=== PATIENT | female | born 1945 | race Caucasian/White ===

== ENCOUNTER 2020-07-12 12:45 | Emergency (ER) | payer MEDICARE, BC ==
[2020-07-12] MEDS ORDERED: Metoclopramide 10 MG/2 ML SDV IVPUSH ONE (12:58)
[2020-07-12] MEDS ORDERED: Sodium Chloride 0.9% 10 ML Syringe FLUSH PRN (12:58)
[2020-07-12] MEDS ORDERED: Ketorolac 30 MG/ML SDV IVPUSH ONE (12:58)
[2020-07-12] MEDS ORDERED: Sodium Chloride 0.9% 1,000 ML IV ONE (12:58)
[2020-07-12] MEDS ORDERED: diphenhydrAMINE 50 MG/ML SDV IVPUSH ONE (12:58)
--- NOTE | 2020-07-12 13:17 | EDM.PDOC ---
ED HPI GENERAL MEDICAL PROBLEM - General Chief Complaint: Headache Stated Complaint: NAUSEA/HEADACHE Time Seen by Provider: 07/12/20 12:52 Source of Information: Reports: Patient, RN Notes Reviewed History Limitations: Reports: No Limitations - History of Present Illness INITIAL COMMENTS - FREE TEXT/NARRATIVE: Patient is a 74-year-old female who presents to the ED for the evaluation of her frontal headache. Patient notes for the last 5 days, she has had a frontal headache, along with associated nausea, so much so that she is not been able to eat or drink much. She has not had any actual vomiting, but just has not been eating due to the nausea. She notes that she just feels generally unwell, she has been having some hot and cold flashes, but no documented fever at home. She has been using aspirin for her headache, and this seems to make the headache better initially, but then it returns again. She was seen at the [facility] on Wednesday, states she was tested for COVID-19 and influenza and states both of these were negative. She did not receive any medications for the headache when she attended the clinic on Wednesday. She denies any known sick contacts. She does not have a history of headaches, so this is new for her. She is not having any blurred vision or double vision, her blood pressure is mildly elevated at time of triage at 173/85, otherwise vitals are stable and unremarkable. She is not complaining of any cough or shortness of breath. She is complaining of generalized myalgias, nausea, and a headache that will not go away with aspirin alone. Headache Pain Score (Numeric/FACES): 8 - Related Data Allergies Allergy/AdvReac Type Severity Reaction Status Date / Time Sulfa (Sulfonamide Allergy Rash Verified 03/08/19 08:40 Antibiotics) Home Meds: Home Meds Carbodopa Levadopa 1 tab PO TID 07/12/20 [History] Cyanocobalamin/FA/Pyridoxine [Folbic] 1 tab PO DAILY 07/12/20 [History] Levothyroxine [Synthroid] 50 mcg PO DAILY 07/12/20 [History] Simvastatin 20 mg PO DAILY 07/12/20 [History] Past Medical History HEENT History: Reports: Impaired Vision, Other (See Below) Other HEENT History: [facility] Neurological History: Reports: Parkinson's Endocrine/Metabolic History: Reports: Hypothyroidism - Past Surgical History GI Surgical History: Reports: Cholecystectomy Social & Family History - Tobacco Use Tobacco Use Status *Q: Never Tobacco User - Caffeine Use Caffeine Use: Reports: Coffee, Soda, Tea - Recreational Drug Use Recreational Drug Use: No ED ROS GENERAL - Review of Systems Review Of Systems: Comprehensive ROS is negative, except as noted in HPI. - Physical Exam Exam: See Below Exam Limited By: No Limitations General Appearance: Alert, WD/WN, No Apparent Distress Eye Exam: Bilateral Eye: EOMI, Normal Inspection, PERRL Ears: Normal External Exam Nose: Normal Inspection Throat/Mouth: Normal Inspection, Normal Lips, Normal Teeth, Normal Gums, Normal Oropharynx, Normal Voice, No Airway Compromise Head Exam: Atraumatic, Normocephalic Neck: Normal Inspection, Supple, Non-Tender, Full Range of Motion Respiratory/Chest: No Respiratory Distress, Lungs Clear, Normal Breath Sounds, No Accessory Muscle Use, Chest Non-Tender Cardiovascular: Normal Peripheral Pulses, Regular Rate, Rhythm, No Murmur GI/Abdominal: Normal Bowel Sounds, Soft, No Distention, No Mass, Tender (mild tenderness over epigastrium only) Neuro Exam (Abbreviated): Alert, Oriented, Normal Cognition, No Motor/Sensory Deficits Extremities: Normal Inspection, Normal Capillary Refill Psychiatric: Normal Affect, Normal Mood Skin Exam: Warm, Dry, Intact, Normal Color, No Rash Course - Vital Signs Last Recorded V/S: Last Vital Signs Temp 96.8 F L 07/12/20 12:53 Pulse 95 07/12/20 12:53 Resp 20 07/12/20 12:53 BP 173/85 H 07/12/20 12:53 Pulse Ox 97 07/12/20 12:53 - Orders/Labs/Meds Orders: Active Orders 24 hr Category Date Time Status Peripheral IV Care [RC] . DIRECTED Care 07/12/20 12:58 Ordered CBC WITH AUTO DIFF [HEME] Stat Lab 07/12/20 13:08 Ordered Sodium Chloride 0.9% [Saline Flush] Med 07/12/20 12:58 Active 10 ml FLUSH ASDIRECTED PRN Peripheral IV Insertion Adult [OM.PC] Routine Oth 07/12/20 12:58 Ordered Medication Orders Sodium Chloride (Saline Flush) 10 ml FLUSH ASDIRECTED PRN PRN Reason: Keep Vein Open Last Admin: 07/12/20 13:40 Dose: 10 ml Documented by: DEMIAN Labs: Laboratory Tests 07/12/20 07/12/20 Range/Units 13:17 13:17 WBC 5.38 (3.98-10.04) K/mm3 RBC 4.22 (3.98-5.22) M/mm3 Hgb 13.2 (11.2-15.7) gm/dl Hct 39.7 (34.1-44.9) % MCV 94.1 (79.4-94.8) fl MCH 31.3 (25.6-32.2) pg MCHC 33.2 (32.2-35.5) g/dl RDW Std Deviation 40.9 (36.4-46.3) fL Plt Count 253 (182-369) K/mm3 MPV 9.4 (9.4-12.3) fl Neut % (Auto) 69.4 (34.0-71.1) % Lymph % (Auto) 20.4 (19.3-51.7) % Dolores % (Auto) 9.3 (4.7-12.5) % Eos % (Auto) 0.2 L (0.7-5.8) Baso % (Auto) 0.7 (0.1-1.2) % Neut # (Auto) 3.73 (1.56-6.13) K/mm3 Lymph # (Auto) 1.10 L (1.18-3.74) K/mm3 Dolores # (Auto) 0.50 H (0.24-0.36) K/mm3 Eos # (Auto) 0.01 L (0.04-0.36) K/mm3 Baso # (Auto) 0.04 (0.01-0.08) K/mm3 Sodium 140 (136-145) mEq/L Potassium 3.5 (3.5-5.1) mEq/L Chloride 104 (98-107) mEq/L Carbon Dioxide 27 (21-32) mEq/L Anion Gap 12.5 (5-15) BUN 16 (7-18) mg/dL Creatinine 0.7 (0.55-1.02) mg/dL Est Cr Clr Drug Dosing 61.81 mL/min Estimated GFR (MDRD) > 60 (>60) mL/min BUN/Creatinine Ratio 22.9 H (14-18) Glucose 142 H (83-115) mg/dL Calcium 8.5 (8.5-10.1) mg/dL Magnesium 1.7 L (1.8-2.4) mg/dl Total Bilirubin 0.6 (0.2-1.0) mg/dL AST 19 (15-37) U/L ALT 11 L (14-59) U/L Alkaline Phosphatase 71 (46-116) U/L Total Protein 6.9 (6.4-8.2) g/dl Albumin 2.9 L (3.4-5.0) g/dl Globulin 4.0 gm/dL Albumin/Globulin Ratio 0.7 L (1-2) Meds: Medications Generic Name Dose Route Start Last Admin Trade Name Freq PRN Reason Stop Dose Admin Sodium Chloride 10 ml 07/12/20 12:58 07/12/20 13:40 Saline Flush FLUSH 10 ml ASDIRECTED PRN Administration Keep Vein Open Discontinued Medications Generic Name Dose Route Start Last Admin Trade Name Freq PRN Reason Stop Dose Admin Diphenhydramine HCl 25 mg 07/12/20 12:58 07/12/20 13:39 Benadryl IVPUSH 07/12/20 12:59 25 mg ONETIME ONE Administration Sodium Chloride 1,000 mls @ 999 mls/hr 07/12/20 12:58 07/12/20 13:39 Normal Saline IV 07/12/20 13:58 999 mls/hr ASDIRECTED ONE Administration Ketorolac Tromethamine 30 mg 07/12/20 12:58 07/12/20 13:39 Toradol IVPUSH 07/12/20 12:59 30 mg ONETIME ONE Administration Metoclopramide HCl 10 mg 07/12/20 12:58 07/12/20 13:39 Reglan IVPUSH 07/12/20 12:59 10 mg ONETIME ONE Administration - Re-Assessments/Exams Free Text/Narrative Re-Assessment/Exam: 07/12/20 13:16 Patient presents to the ED for evaluation of her ongoing sickness. Have ordered some medications for her headache, and basic labs to be obtained. She is already had a Covid test and a flu swab that was negative, these will not be repeated at this time. 07/12/20 14:33 The patient states that she is feeling much better, and that her headache has subsided substantially. Her labs are unremarkable at this time. She will be discharged home with general recommendations and have her follow-up with her primary care provider as needed for further health care management. Departure - Departure Time of Disposition: 14:33 Disposition: Home, Self-Care 01 Condition: Good Clinical Impression: Headache Qualifiers: Headache type: other headache syndrome Qualified Code(s): G44.89 - Other headache syndrome - Discharge Information *PRESCRIPTION DRUG MONITORING PROGRAM REVIEWED*: No *COPY OF PRESCRIPTION DRUG MONITORING REPORT IN PATIENT ONEL: No Instructions: General Headache Without Cause, [id number] Referrals: Amy Alicia NP [Primary Care Provider] - Forms: ED Department Discharge Additional Instructions: You were evaluated in the ED for your headache. Your laboratory evaluation was unremarkable at today's visit. You were given a combination of medications and IV fluid for management. This did seem to provide you pretty good relief of your symptoms. Recommend that you go home and rest in a quiet, darkened room. Try also to keep well hydrated. Please return to the ED if your symptoms should change or worsen. Sepsis Event Note (ED) - Evaluation Sepsis Screening Result: No Definite Risk - Focused Exam Vital Signs: Vital Signs Temp Pulse Resp BP Pulse Ox 07/12/20 12:53 96.8 F L 95 20 173/85 H 97 - My Orders Last 24 Hours: My Active Orders 07/12/20 12:58 Peripheral IV Care [RC] . DIRECTED Sodium Chloride 0.9% [Saline Flush] 10 ml FLUSH ASDIRECTED PRN Peripheral IV Insertion Adult [OM.PC] Routine 07/12/20 13:08 CBC WITH AUTO DIFF [HEME] Stat - Assessment/Plan Last 24 Hours: My Active Orders 07/12/20 12:58 Peripheral IV Care [RC] . DIRECTED Sodium Chloride 0.9% [Saline Flush] 10 ml FLUSH ASDIRECTED PRN Peripheral IV Insertion Adult [OM.PC] Routine 07/12/20 13:08 CBC WITH AUTO DIFF [HEME] Stat
== END 2020-07-12 14:45 | disposition home or self-care (01) ==
LOC: JD.ED 12:45
DX: G44.89 Other headache syndrome (principal); R10.13 Epigastric pain; E03.9 Hypothyroidism, unspecified; G20 Parkinson's disease; Z88.2 Allergy status to sulfonamides; Z90.49 Acquired absence of other specified parts of digestive tract; Z79.899 Other long term (current) drug therapy
CPT/HCPCS: 36415; 80053; 83735; 85025; 96374; 96375; 99284; J1200; J1885; J2765; J7030; 99283

== ENCOUNTER 2020-09-27 16:55 | Emergency (ER) | payer MEDICARE, BC ==
--- NOTE | 2020-09-27 19:00 | EDM.PDOC ---
ED HPI GENERAL MEDICAL PROBLEM - General Chief Complaint: Upper Extremity Injury/Pain Stated Complaint: FALL/L WRIST AND ARM INJURY Time Seen by Provider: 09/27/20 17:25 Source of Information: Reports: Patient, RN Notes Reviewed History Limitations: Reports: No Limitations - History of Present Illness INITIAL COMMENTS - FREE TEXT/NARRATIVE: Patient is a 74-year-old female presenting to the emergency department with complaints of right wrist pain. She states that she fell and reached her right arm out to catch herself. She felt something crack. She has been having pain to the area whenever she moves her wrist. Denies any numbness or tingling. Denies any previous injuries to this wrist. Treatments [employer]: Reports: Cold Therapy Right Wrist Pain Score (Numeric/FACES): 7 - Related Data Allergies Allergy/AdvReac Type Severity Reaction Status Date / Time Sulfa (Sulfonamide Allergy Rash Verified 09/27/20 17:28 Antibiotics) Home Meds: Home Meds Carbodopa Levadopa 1 tab PO TID 07/12/20 [History] Cyanocobalamin/FA/Pyridoxine [Folbic] 1 tab PO DAILY 07/12/20 [History] Levothyroxine [Synthroid] 50 mcg PO DAILY 07/12/20 [History] Simvastatin 20 mg PO DAILY 07/12/20 [History] Past Medical History HEENT History: Reports: Impaired Vision, Other (See Below) Other HEENT History: [place] Neurological History: Reports: Parkinson's Endocrine/Metabolic History: Reports: Hypothyroidism - Past Surgical History GI Surgical History: Reports: Cholecystectomy Social & Family History - Family History Family Medical History: No Pertinent Family History - Tobacco Use Tobacco Use Status *Q: Never Tobacco User Second Hand Smoke Exposure: No - Caffeine Use Caffeine Use: Reports: None - Recreational Drug Use Recreational Drug Use: No Review of Systems - Review of Systems Review Of Systems: Comprehensive ROS is negative, except as noted in HPI. ED EXAM, GENERAL - Physical Exam Exam: See Below Exam Limited By: No Limitations General Appearance: Alert, WD/WN, No Apparent Distress Respiratory/Chest: No Respiratory Distress, Lungs Clear, Normal Breath Sounds, No Accessory Muscle Use, Chest Non-Tender Cardiovascular: Normal Peripheral Pulses, Regular Rate, Rhythm, No Edema, No Gallop, No JVD, No Murmur, No Rub Extremities: Other (Tenderness to palpation over the right distal radius. No obvious deformity. CMS intact distal to the injury.) Neurological: Alert, Oriented, CN II-XII Intact, Normal Cognition, Normal Gait, Normal Reflexes, No Motor/Sensory Deficits Psychiatric: Normal Affect, Normal Mood Skin Exam: Warm, Dry, Intact, Normal Color, No Rash ED TRAUMA EXTREMITY PROCEDURES - Splinting Right Upper Extremity Splint Site: rt wrist Pre-Procedure NV Status: Normal Post-Procedure NV Status: Normal Splint Material: Fiberglass Splint Design: Volar Applied & Form Fitted By: Provider Provider Post-Splint Application NV Check: NV Status Normal, Good Position Complications: No Course - Vital Signs Last Recorded V/S: Last Vital Signs Temp 98.0 F 09/27/20 17:26 Pulse 78 09/27/20 17:26 Resp 16 09/27/20 17:26 BP 146/88 H 09/27/20 17:26 Pulse Ox 100 09/27/20 17:26 - Orders/Labs/Meds Orders: Active Orders 24 hr Category Date Time Status Hand Comp Min 3V Rt [CR] Stat Exams 09/27/20 17:49 Taken Wrist Comp Min 3V Rt [CR] Stat Exams 09/27/20 17:49 Taken - Re-Assessments/Exams Free Text/Narrative Re-Assessment/Exam: 09/27/20 18:57 X-ray of the right wrist shows findings concerning for a distal radius fracture on the lateral view. Custom Ortho-Glass wrist splint has been applied. CMS intact distal to the splint after application. I will send referral to Dr. Rooney, orthopedist. Recommend ice and elevation. Discharge instructions as documented. Departure - Departure Time of Disposition: 18:58 Disposition: Home, Self-Care 01 Condition: Good Clinical Impression: Radius distal fracture Qualifiers: Encounter type: initial encounter Fracture type: closed Fracture morphology: unspecified fracture morphology Laterality: right Qualified Code(s): S52.501A - Unspecified fracture of the lower end of right radius, initial encounter for closed fracture - Discharge Information *PRESCRIPTION DRUG MONITORING PROGRAM REVIEWED*: No *COPY OF PRESCRIPTION DRUG MONITORING REPORT IN PATIENT ONEL: No Instructions: Cast or Splint Care, Adult, [id number] Referrals: Amy Alicia NP [Primary Care Provider] - Glynn Rooney MD [Physician] - Additional Instructions: You were seen in the emergency department today for pain to your right wrist after falling. X-rays were completed and were concerning for a fracture of your wrist. A splint has been applied. That should remain on at all times and be kept clean and dry. Recommend intermittent ice and elevation over the next few days. He may use [id number] Tylenol as needed for discomfort. Call orthopedist, Dr. Rooney, on Wednesday morning to set up an appointment. The number to schedule with him as listed below. Return to ER for any new or worsening symptoms of concern. Sepsis Event Note (ED) - Evaluation Sepsis Screening Result: No Definite Risk - Focused Exam Vital Signs: Vital Signs Temp Pulse Resp BP Pulse Ox 09/27/20 17:26 98.0 F 78 16 146/88 H 100 - My Orders Last 24 Hours: My Active Orders 09/27/20 17:49 Hand Comp Min 3V Rt [CR] Stat Wrist Comp Min 3V Rt [CR] Stat - Assessment/Plan Last 24 Hours: My Active Orders 09/27/20 17:49 Hand Comp Min 3V Rt [CR] Stat Wrist Comp Min 3V Rt [CR] Stat
--- NOTE | 2020-09-28 20:17 | CR ---
Right hand: 4 views of the right hand were obtained. Comparison: Prior right thumb study of 08/23/10. Mild joint space narrowing is noted within the DIP and PIP joints. Mild joint space narrowing is scattered within the MCP joints. No discrete fracture, dislocation or other bony abnormality is appreciated. Impression: 1. Degenerative change as noted above. 2. No acute abnormality is appreciated on right hand exam. Diagnostic code #2
--- NOTE | 2020-09-28 20:18 | CR ---
Right wrist: 4 views of the right wrist were obtained. Comparison: No previous wrist study is available. Joint spaces are fairly well maintained. No acute fracture, dislocation or other bony abnormality is appreciated. Impression: 1. Nothing acute is seen on right wrist exam. Diagnostic code #1
== END 2020-09-27 19:19 | disposition home or self-care (01) ==
LOC: JD.ED 16:55
DX: S52.501A Unspecified fracture of the lower end of right radius, initial encounter for closed fracture (principal); E03.9 Hypothyroidism, unspecified; G20 Parkinson's disease; Z88.2 Allergy status to sulfonamides; Z79.899 Other long term (current) drug therapy; W19.XXXA Unspecified fall, initial encounter
CPT/HCPCS: 29125; 73110-26-RT; 73110-RT; 73130-26-RT; 73130-RT; 99283; 99283-25

== ENCOUNTER 2021-07-24 09:26 | Day surgery (SDC) | payer MEDICARE, BC ==
[~2021-07-24 09:26] MED LIST: Lactated Ringers 1,000 ML IV SCH; Lidocaine 1%/Sod Bicarbonate in NS 8.4% 1 ML Syringe IDERM PRN; Sodium Chloride 0.9% 10 ML Syringe FLUSH PRN
[2021-07-24] MEDS ORDERED: Lidocaine 1% 4 ML ONE (10:00)
[2021-07-24] MEDS ORDERED: Propofol 200 MG/20 ML SDV ONE ×2 (10:00→11:12)
--- NOTE | 2021-07-24 10:10 | PCM.PREANE ---
Preanesthetic Assessment - Procedure Proposed Procedure: diag colonoscopy - Anesthesia/Transfusion/Family Hx Anesthesia History: Prior Anesthesia Without Reaction Family History of Anesthesia Reaction: No - Review of Systems General: No Symptoms Pulmonary: No Symptoms Cardiovascular: No Symptoms Gastrointestinal: No Symptoms Neurological: No Symptoms Other: Reports: Thyroid Problems - Physical Assessment NPO Status Date: 07/24/21 NPO Status Time: 04:00 Vital Signs: 139/69 89 98.1 14 100% Height: 5 ft 2 in Weight: 63.8 kg ASA Class: 2 Mental Status: Alert & Oriented x3 Airway Class: Mallampati = 1 Dentition: Reports: Missing Tooth/Teeth Thyro-Mental Finger Breadths: 3 Mouth Opening Finger Breadths: 3 ROM/Head Extension: Full Lungs: Clear to Auscultation, Normal Respiratory Effort Cardiovascular: Regular Rate, Irregular Rhythm - Allergies Allergies/Adverse Reactions: Allergies Allergy/AdvReac Type Severity Reaction Status Date / Time Sulfa (Sulfonamide Allergy Rash Verified 07/23/21 14:52 Antibiotics) - Blood Blood Available: No - Acknowledgements Anesthesia Type Planned: MAC Pt an Appropriate Candidate for the Planned Anesthesia: Yes Alternatives and Risks of Anesthesia Discussed w Pt/Guardian: Yes Pt/Guardian Understands and Agrees with Anesthesia Plan: Yes PreAnesthesia Questionnaire HEENT History: Reports: Cataract, Impaired Vision, Other (See Below) Other HEENT History: HARD OF HEARING Cardiovascular History: Reports: Arrhythmia, High Cholesterol Respiratory History: Reports: None Gastrointestinal History: Reports: None Genitourinary History: Reports: None MERCHANT MILLER History: Reports: None Musculoskeletal History: Reports: Other (See Below) Other Musculoskeletal History: RIGHT WRIST FRACTURE Neurological History: Reports: Parkinson's Psychiatric History: Reports: None Endocrine/Metabolic History: Reports: Hypothyroidism, Vitamin D Deficiency Hematologic History: Reports: None Immunologic History: Reports: None Oncologic (Cancer) History: Reports: None Dermatologic History: Reports: None - Infectious Disease History Infectious Disease History: Reports: None - Past Surgical History Head Surgeries/Procedures: Reports: None HEENT Surgical History: Reports: None Cardiovascular Surgical History: Reports: None GI Surgical History: Reports: Cholecystectomy, EGD Female Surgical History: Reports: None Male Surgical History: Reports: None Endocrine Surgical History: Reports: None Neurological Surgical History: Reports: None Musculoskeletal Surgical History: Reports: None Oncologic Surgical History: Reports: None Dermatological Surgical History: Reports: None - SUBSTANCE USE Tobacco Use Status *Q: Never Tobacco User Tobacco Use Within Last Twelve Months: No Second Hand Smoke Exposure: No Days Per Week of Alcohol Use: 0 Recreational Drug Use History: No - HOME MEDS Home Medications: Home Meds Cyanocobalamin/FA/Pyridoxine [Folbic] 1 tab PO DAILY 07/12/20 [History] Levothyroxine [Synthroid] 50 mcg PO DAILY 07/12/20 [History] Simvastatin 20 mg PO DAILY 07/12/20 [History] Carbidopa/Levodopa [Carbidopa-Levodopa 25-250] 1 tab PO QID 07/23/21 [History] Latanoprost/Pf [Latanoprost 0.005% Eye Drop] 1 drop EYEBOTH BEDTIME 07/23/21 [History] Pantoprazole Sodium [Protonix] 20 mg PO DAILY 07/23/21 [History] - CURRENT (IN HOUSE) MEDS Current Meds: Current Medications Lactated Ringer's (Ringers, Lactated) 1,000 mls @ 125 mls/hr IV ASDIRECTED DRAKE Stop: 07/24/21 23:00 Lidocaine/Sodium Bicarbonate (Lidocaine 1%/Sod Bicarbonate In Ns 8.4% 1 Ml Syringe) 0.25 ml IDERM ONETIME PRN PRN Reason: Prior to IV Start Stop: 07/24/21 23:00 Sodium Chloride (Sodium Chloride 0.9% 10 Ml Syringe) 10 ml FLUSH ASDIRECTED PRN PRN Reason: Keep Vein Open Stop: 07/24/21 23:00 Discontinued Medications Lidocaine HCl (Xylocaine-Mpf 1%) Confirm Administered Dose 4 mls @ as directed .ROUTE .STK-MED ONE Stop: 07/24/21 10:01 Propofol (Propofol 200 Mg/20 Ml Sdv) Confirm Administered Dose 200 mg .ROUTE .STK-MED ONE Stop: 07/24/21 10:01
--- NOTE | 2021-07-24 11:39 | PCM.PRNOTE ---
- Free Text/Narrative Note: Date: 07/24/2021 Procedure: diagnostic colonoscopy History: positive cologuard test, no prior colon cancer screening Endoscopist: Jesus Webb MD Findings: good prep. Cecum reached. Small sessile polyp in sigmoid colon biopsied. A few miniscule hyperplastic appearing polyps noted distally. Diverticulosis. Detailed Report: The patient was taken to the endoscopy suite and placed in left lateral decubitus position. Timeout was performed and monitored anesthesia care was initiated. The anus appeared normal. Digital rectal exam was unremarkable. The colonoscope was inserted and advanced all the way to the cecum. The appendiceal orifice was visualized. The prep was good. The scope was slowly withdrawn and mucosal surfaces carefully inspected. No large polyps or lesions worrisome for malignancy were identified. A small sessile polyp was identified in the sigmoid colon and this was removed with jumbo forceps. There was diverticular disease of the sigmoid. A few very small hyperplastic appearing polyps were noted within the rectum, it is unclear if these were even real polyps as it was difficult to keep the lumen distended with insufflation despite our best efforts towards the end of the case. No significant hemorrhoidal disease was appreciated. Air was suctioned from the distal colon and rectum prior to withdrawal of the scope. The patient tolerated the procedure well.
--- NOTE | 2021-07-24 11:46 | PCM48HPAN ---
Post Anesthesia Note - EVALUATION WITHIN 48HRS OF ANESTHETIC Vital Signs in Normal Range: Yes Patient Participated in Evaluation: Yes Respiratory Function Stable: Yes Airway Patent: Yes Cardiovascular Function Stable: Yes Hydration Status Stable: Yes Pain Control Satisfactory: Yes Nausea and Vomiting Control Satisfactory: Yes Mental Status Recovered: Yes
== END 2021-07-24 12:35 | disposition home or self-care (01) ==
LOC: JD.SDS 09:26
PROVIDERS: ATTEND Surgery
DX: K63.5 Polyp of colon (principal); K57.30 Diverticulosis of large intestine without perforation or abscess without bleeding; G20 Parkinson's disease; E03.9 Hypothyroidism, unspecified; E78.5 Hyperlipidemia, unspecified; E55.9 Vitamin D deficiency, unspecified; Z90.49 Acquired absence of other specified parts of digestive tract; Z88.2 Allergy status to sulfonamides; Z79.899 Other long term (current) drug therapy; Z79.890 Hormone replacement therapy; Z98.890 Other specified postprocedural states
CPT/HCPCS: 45380; J2704; J7120; 00811; 88305; 99100

== ENCOUNTER 2021-12-01 16:04 | Emergency (ER) | payer MEDICARE, BC ==
[2021-12-01] MEDS ORDERED: Sodium Chloride 0.9% 10 ML Syringe FLUSH PRN (16:41)
== END 2021-12-01 19:54 | disposition home or self-care (01) ==
LOC: JD.ED 16:04
DX: R06.02 Shortness of breath (principal); G20 Parkinson's disease; E78.00 Pure hypercholesterolemia, unspecified; I10 Essential (primary) hypertension; E03.9 Hypothyroidism, unspecified; Z88.2 Allergy status to sulfonamides; Z79.899 Other long term (current) drug therapy
CPT/HCPCS: 36415; 71045; 71045-26; 80053; 84484; 85025; 93005; 99285-25

== ENCOUNTER 2022-03-26 20:32 | Emergency (ER) | payer MEDICARE, BC | END 2022-03-26 23:13 | disposition home or self-care (01) | LOC: SUPCPDRO 20:32 → JD.ED 20:32 | DX: R06.00 Dyspnea, unspecified (principal); I10 Essential (primary) hypertension; Z88.2 Allergy status to sulfonamides; Z79.899 Other long term (current) drug therapy; Z90.49 Acquired absence of other specified parts of digestive tract | CPT/HCPCS: 36415; 71045; 71045-26; 80053; 83880; 84484; 85025; 93005; 99285 ==

== ENCOUNTER 2023-01-29 16:23 | Emergency (ER) | payer BC, MEDICARE ==
[2023-01-29 17:25] LABS: BASOPHILS ABSOLUTE AUTO 0.02 K/mm3 (0.01-0.08); BASOPHILS PERCENT AUTO 0.2 % (0.1-1.2); EOSINOPHILS ABSOLUTE AUTO 0.07 K/mm3 (0.04-0.36); EOSINOPHILS PERCENT AUTO 0.7 (0.7-5.8); HEMATOCRIT 39.4 % (34.1-44.9); IMMATURE GRAN ABSOLUTE AUTO 0.03 K/mm3 (0.00-0.10); IMMATURE GRAN PERCENT AUTO 0.3 % (<=1.0); LYMPHOCYTES ABSOLUTE AUTO 0.78 K/mm3 (1.18-3.74); LYMPHOCYTES PERCENT AUTO 7.6 % (19.3-51.7); MEAN CORPUSCULAR HEMOGLOBIN 31.9 pg (25.6-32.2); MEAN CORPUSCULAR VOLUME 96.6 fl (79.4-94.8); MEAN PLATELET VOLUME 10.6 fl (9.4-12.3); MONOCYTES PERCENT AUTO 6.8 % (4.7-12.5); NEUTROPHILS ABSOLUTE AUTO 8.65 K/mm3 (1.56-6.13); NEUTROPHILS PERCENT AUTO 84.4 % (34.0-71.1); PLATELET COUNT,PLT 156 K/mm3 (182-369); RED BLOOD CELL COUNT 4.08 M/mm3 (3.98-5.22); WHITE BLOOD CELL COUNT,WBC 10.25 K/mm3 (3.98-10.04)
[2023-01-29 17:42] LABS: APPEARANCE,URINE CLOUDY (Clear); BILIRUBIN,URINE NEGATIVE (Negative); COLOR,URINE YELLOW (Yellow); GLUCOSE,URINE NEGATIVE (Negative); KETONES,URINE NEGATIVE (Negative); LEUKOCYTE ESTERASE,URINE 3+ (Negative); NITRITE,URINE NEGATIVE (Negative); OCCULT BLOOD,URINE TRACE-INTACT (Negative); PROTEIN,URINE 1+ (Negative); UROBILINOGEN,URINE 0.2 (0.2-1.0)
[2023-01-29 17:46] LABS: ALANINE AMINOTRANSFERASE,ALT 24 U/L (14-59); ALBUMIN 3.5 g/dl (3.4-5.0); ALKALINE PHOSPHATASE 107 U/L (46-116); ANION GAP 13.5 (5-15); ASPARTATE AMNIOTRANSFERASE,AST 35 U/L (15-37); BILIRUBIN TOTAL 0.4 mg/dL (0.2-1.0); BLOOD UREA NITROGEN,BUN 22 mg/dL (7-18); C-REACTIVE PROTEIN <0.2 mg/dL (<1.0); CALCIUM 8.7 mg/dL (8.5-10.1); CARBON DIOXIDE,CO2 25 mEq/L (21-32); CHLORIDE,CL 105 mEq/L (98-107); EST CRCL DRUG DOSING (CG) 37.85 mL/min; ESTIMATED GFR 58 mL/min (>60); GLUCOSE RANDOM 141 mg/dL (70-99); POTASSIUM,K 3.5 mEq/L (3.5-5.1); PROTEIN TOTAL,TP 7.1 g/dl (6.4-8.2); SODIUM,NA 140 mEq/L (136-145)
[2023-01-29 17:51] LABS: BACTERIA,URINE MANY /hpf (FEW); SQUAMOUS EPITHELIAL CELLS,UR 0-5 /hpf (0-5); WBC,URINE TOO NUMEROUS TO CNT /hpf (0-5)
[2023-01-29 17:52] LABS: MUCUS,URINE NOT SEEN /hpf (FEW)
[2023-01-29] MEDS ORDERED: cefTRIAXone 1 GM in Sodium Chloride 0.9% 100 ML IV ONE (17:59)
== END 2023-01-29 19:25 | disposition home or self-care (01) ==
LOC: JD.ED 16:23
DX: G20 Parkinson's disease (principal); N30.00 Acute cystitis without hematuria; E78.00 Pure hypercholesterolemia, unspecified; I10 Essential (primary) hypertension; E03.9 Hypothyroidism, unspecified; Z88.2 Allergy status to sulfonamides; Z79.899 Other long term (current) drug therapy
CPT/HCPCS: 36415; 70450; 71045; 73502; 80053; 81001; 84484; 85025; 86140; 87086; 87088; 87186; 93005; 96365; 99285; J0696; J3490; 93010; 99283

== ENCOUNTER 2024-03-28 15:30 | Emergency (ER) | payer MEDICARE ==
[2024-03-28 16:12] LABS: BASOPHILS PERCENT AUTO 0.4 % (0.0-1.0); EOSINOPHILS PERCENT AUTO 0.7 % (0.0-6.0); HEMATOCRIT 40.7 % (37.0-47.0); HEMOGLOBIN 13.3 gm/dl (12.0-16.0); IMMATURE GRAN ABSOLUTE AUTO 0.02 K/mm3 (0.00-0.05); IMMATURE GRAN PERCENT AUTO 0.4 % (0.0-0.4); LYMPHOCYTES PERCENT AUTO 17.6 % (24.0-44.0); MEAN CORPUSCULAR HEMOGLOBIN 31.8 pg (28.0-32.0); MEAN CORPUSCULAR HGB CONC 32.7 g/dl (32.0-36.0); MEAN CORPUSCULAR VOLUME 97.4 fl (83.0-99.0); MEAN PLATELET VOLUME 10.6 fl (9.4-12.3); MONOCYTES ABSOLUTE AUTO 0.4 K/mm3 (0.0-0.8); MONOCYTES PERCENT AUTO 7.9 % (0.0-8.0); NEUTROPHILS ABSOLUTE AUTO 4.1 K/mm3 (1.8-7.7); PLATELET COUNT,PLT 155 K/mm3 (150-400); RED BLOOD CELL COUNT 4.18 M/mm3 (4.10-5.30); WHITE BLOOD CELL COUNT,WBC 5.57 K/mm3 (3.9-11.3)
[2024-03-28 16:50] LABS: A/G RATIO 1.1 (1-2); ALBUMIN 3.7 g/dl (3.4-5.0); ANION GAP 10.9 (5-15); BILIRUBIN TOTAL 0.4 mg/dL (0.2-1.0); C-REACTIVE PROTEIN 0.57 mg/dL (<0.30); CALCIUM 9.2 mg/dL (8.5-10.1); EST CRCL DRUG DOSING (CG) 37.26 mL/min; MAGNESIUM 1.9 mg/dL (1.8-2.4); POTASSIUM,K 3.9 mEq/L (3.5-5.1); PROTEIN TOTAL,TP 7.1 g/dl (6.4-8.2); TSH 4.387 uIU/mL (0.358-3.74)
[2024-03-28] MEDS: Lidocaine 1% 10 ML MDV INJECT ONE (17:15)
== END 2024-03-28 18:10 | disposition home or self-care (01) ==
LOC: JD.ED 15:30
DX: S01.81XA Laceration without foreign body of other part of head, initial encounter (principal); S80.11XA Contusion of right lower leg, initial encounter; I10 Essential (primary) hypertension; E78.00 Pure hypercholesterolemia, unspecified; E03.9 Hypothyroidism, unspecified; Z90.49 Acquired absence of other specified parts of digestive tract; Z79.899 Other long term (current) drug therapy; Z79.890 Hormone replacement therapy; Z88.2 Allergy status to sulfonamides; W10.8XXA Fall (on) (from) other stairs and steps, initial encounter
CPT/HCPCS: 12011; 36415; 70450; 70450-26; 73590-26-RT; 73590-RT; 80053; 83735; 84443; 85025; 86140; 99284-25; J3490